=== PATIENT | female | born 1940 | race Caucasian/White ===

== ENCOUNTER 2019-12-01 18:29 | Observation (INO) | payer MEDICARE ==
[~2019-12-01] VITALS: Ht 172.7 cm; Wt 66.8 kg
[2019-12-01 19:00] LABS: BASOPHILS % 0.5 % (0.0-1.0); EOSINOPHILS # (AUTO) 0.2 (0.0-0.4); EOSINOPHILS % 2.7 % (0.0-6.0); HEMATOCRIT 35.7 % (34.2-44.1); HEMOGLOBIN 12.1 g/dL (12.0-16.0); LYMPHOCYTES # (AUTO) 1.6 (1.0-3.2); LYMPHOCYTES % 20.4 % (18.0-39.1); MEAN CORPUSCULAR HEMOGLOBIN 31.2 pg (28-32); MEAN CORPUSCULAR HGB CONC 33.9 g/dL (31-35); MONOCYTES # (AUTO) 0.8 (0.2-0.8); MONOCYTES % 9.5 % (4.4-11.3); NEUTROPHILS # (AUTO) 5.2 (2.1-6.9); NEUTROPHILS % 66.4 % (38.7-80.0); PLATELET COUNT 214 x10e3/uL (140-360); RED BLOOD COUNT 3.88 x10e6/uL (3.6-5.1); RED CELL DISTRIBUTION WIDTH 11.9 % (11.7-14.4)
[2019-12-01 19:09] LABS: INR 0.96; PARTIAL THROMBOPLASTIN TIME 26.2 seconds (23.8-35.5); PROTHROMBIN TIME 13.4 seconds (11.9-14.5)
[2019-12-01 19:19] LABS: ALANINE AMINOTRANSFERASE 10 IU/L (0-55); ALBUMIN 3.6 g/dL (3.5-5.0); ALBUMIN/GLOBULIN RATIO 1.3 (0.8-2.0); ALKALINE PHOSPHATASE 98 IU/L (40-150); ANION GAP 9.5 mmol/L (8-16); BLOOD UREA NITROGEN 6 mg/dL (7-26); BUN/CREATININE RATIO 8 (6-25); CALCIUM 8.8 mg/dL (8.4-10.2); CARBON DIOXIDE 28 mmol/L (22-29); CHLORIDE 105 mmol/L (98-107); CREATINE KINASE 26 IU/L (29-168); CREATININE, SERUM 0.75 mg/dL (0.57-1.11); EST GLOMERULAR FILTRATION RATE > 60 ML/MIN (60-); GLUCOSE 134 mg/dL (74-118); POTASSIUM 3.5 mmol/L (3.5-5.1); SODIUM 139 mmol/L (136-145)
--- NOTE | 2019-12-01 19:49 | Diagnostic Imaging Report ---
EXAMINATION: CHEST SINGLE (PORTABLE) COMPARISON: None INDICATION: Dizziness ^ERMD ORDER ^[id number] ^1905 ^Y DISCUSSION: Frontal view of the chest obtained at 1915 hours. HEART AND MEDIASTINUM: The cardiomediastinal silhouette is unremarkable. There is elevation of the right hilum. LINES: None. LUNGS: Right apical pleural thickening and a potential cavitation in the right upper lobe. The left lung is clear. PLEURA: No pleural effusion or pneumothorax. BONES AND SOFT TISSUES: Degenerative changes of the right shoulder. No focal osseous lesions. The soft tissues are normal. IMPRESSION: Suspected cavitary mass in the right upper lobe. This may be the result of tuberculosis infection or neoplasm. Signed by: Dr. Florencia Payne MD on 12/01/2019 7:46 PM
--- NOTE | 2019-12-01 19:55 | NUR ---
PT MOVED TO ER ROOM 1 BASED ON CXR REPORT OF SUSPICION OF TB. CARE TRAINER SPOKE TO PATIENT REGARDING XRAY FINDINGS. 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
[2019-12-01] MEDS ORDERED: SODIUM CHLORIDE 0.9% 1000ML 1,000 ML IV SCH (20:24)
[2019-12-01] MEDS ORDERED: ONDANSETRON HCL INJ 2MG/ML 2ML 2 MG/ML VIAL IV PRN (20:30)
--- NOTE | 2019-12-01 21:30 | NUR ---
VERIFIED THAT PT DOES NOT REQUIRE ISOLATION FOR MAC. SANITATION SUPERINTENDENT INFORMED.
[2019-12-01 22:17] LABS: BILIRUBIN,URINE NEGATIVE (NEGATIVE); CLARITY,URINE SL CLOUDY (CLEAR); COLOR,URINE YELLOW (YELLOW); KETONES,URINE NEGATIVE (NEGATIVE); LEUKOCYTE ESTERASE ,URINE NEGATIVE (NEGATIVE); NITRITE,URINE NEGATIVE (NEGATIVE); PROTEIN,URINE DIPSTICK NEGATIVE (NEGATIVE); URINE UROBILINOGEN 0.2 mg/dL (0.2 - 1)
[2019-12-01] MEDS ORDERED: ALIGN4 MG PO (22:17)
[2019-12-01] MEDS ORDERED: LEVOTHYROXINE100 MC1 IV (22:17)
[2019-12-01] MEDS ORDERED: AZITHROMYCIN250 MG PO (22:17)
[2019-12-01] MEDS ORDERED: FLOVENT DISKUS50 MCG (22:17)
[2019-12-01] MEDS ORDERED: ZYRTEC-D TABLE1 EACH PO (22:17)
[2019-12-01] MEDS ORDERED: RIFAMPIN300 MG PO (22:17)
[2019-12-01] MEDS ORDERED: ETHAMBUTOL HCL400 MG PO (22:17)
[2019-12-01] MEDS ORDERED: CALCIUM CITRAT1 EA13 PO (22:17)
[2019-12-01 22:29] LABS: EPITHELIAL CELLS,URINE FEW /LPF; WBC,URINE (MAN) 0-5 /HPF (0-5)
--- NOTE | 2019-12-01 22:40 | NUR ---
PATIENT ARRIVED TO THE FLOOR VIA Lateral SV AWAKE ALERT, DENIES CP NO DISTRESS NOTED, ORIENTED TO STAFF, CALL LIGHT AND VISITING HOURS, ABLE TO STAND W/O DIFFICULTY FOR AMBULATION BRP STANDBY ASSISTANCE GIVEN FOR SAFETY, NO DIFFICULTY URINATING, STATES LBM TODAY IN AM, CALL LIGHT WITHIN AREA, AND BED IN LOWEST POSITION
[2019-12-01 23:00] VITALS: BP 127/72
[2019-12-01 23:04] VITALS: BP 127/72
--- OUTSIDE RECORDS SUMMARY | 2019-12-02 00:16 | XMS REPORT ---
Author Author [facility] Address Unknown Phone Unavailable Care Team Providers Care Parts Cleaner Name Role Phone JEWELL MICHAEL Unavailable Unavailable JANES NÚÑEZ Unavailable Unavailable WILFRED LOGAN Unavailable Unavailable Problems This patient has no known problems. Allergies, Adverse Reactions, Alerts This patient has no known allergies or adverse reactions. Medications This patient has no known medications. Results Test Description Test Time Test Comments Text Results Atomic Results Result Comments CHEST SINGLE (PORTABLE) 2019-12-01 19:38:[address] [address] Patient Name: RENAY MABRY MR #: [id number] : 1940 Age/Sex: 79/F Req #: [id number] Adm Physician: Ordered by: ERUM ROLLINS [employer] MECH[employer]IC Report #: [id number] Location: ER Room/Bed: Procedure: [id number] DX/CHEST SINGLE (PORTABLE) Exam Date: 12/01/19 Exam Time: 1904 REPORT STATUS: Signed EXAMINATION: CHEST SINGLE (PORTABLE) ALESSIA RISON: None INDICATION: Dizziness ERMD ORDER [id number] 1904 Y DISCUSSION: Frontal view of the chest obtained at 1915 hours. HEART AND MEDIASTINUM: The cardiomediastinal silhouette is unremarkable. There is elevation of the right hilum. LINES: None. LUNGS: Right apical pleural thickening and a potential cavitation in the right upper lobe. The left lung is clear. PLEURA: No pleural effusion or pneumothorax. BONES AND SOFT TISSUES: Degenerative changes of the right shoulder. No focal osseous lesions. The soft tissues are normal. IMPRESSION: Suspected cavitary mass in the right upper lobe. This may be the result of tuberculosis infection or neoplasm. Signed by: Dr. Elizabeth Payne MD on 12/01/2019 7:46 PM Dictated By: ELIZABETH PAYNE MD 45 Transcribed By: KEVIN on 12/01/191945 COPY TO: ERUM ROLLINS NP AFB CULTURE + SMEAR 2018-10-27 12:45:00 CULTURE (BEAKER) (test nzei=0481) No acid-fast bacilli isolated in 42 days AFB SMEAR (BEAKER) (test hmjr=139) No acid fast bacilli seen AFB CULTURE + [id number] 09:30:00* Test Item Value Reference Range Comments CULTURE (BEAKER) (test cuue=9889) MYCOBACTERIUM INTRACELLULARE Mycobacterium intracellulareIdentification performed by:[facility], Dept. of Microbiology Research, [facility], [address] [place] [address] Clarithromycin (test code=42) mcg/mL AFB SMEAR (BEAKER) (test dadf=251) No acid fast bacilli seen By partial 16S rRNA gene sequencing, this isolate matches the M. intracellulare type strain 100%.FUNGUS CULTURE + [id number] 15:25:00* Test Item Value Reference Range Comments CULTURE (BEAKER) (test gyqy=5189) No fungus isolated in 28 days FUNGUS SMEAR (BEAKER) (test dcns=2617) No fungi seen FUNGUS CULTURE + [id number] 15:25:00* Test Item Value Reference Range Comments CULTURE (BEAKER) (test qcrf=2444) No fungus isolated in 28 days FUNGUS SMEAR (BEAKER) (test oxzp=6778) No fungi seen BRONCHIAL CULTURE + GRAM [id number] 17:55:00* Test Item Value Reference Range Comments CULTURE (BEAKER) (test hbvu=4395) 1+ Normal respiratory fidel present GRAM STAIN RESULT (BEAKER) (test agpf=4109) No WBCs GRAM STAIN RESULT (BEAKER) (test kqds=26503) No organisms seen BRONCHIAL CULTURE + GRAM [id number] 17:55:00* Test Item Value Reference Range Comments CULTURE (BEAKER) (test infm=8498) No growth GRAM STAIN RESULT (BEAKER) (test eozx=8285) No WBCs GRAM STAIN RESULT (BEAKER) (test jzcs=25811) No organisms seen SPIN/CONCENTRATION [id number] 15:21:00* Test Item Value Reference Range Comments CONCENTRATION CHARGED (BEAKER) (test symk=0092) Done SPIN/CONCENTRATION [id number] 15:21:00* Test Item Value Reference Range Comments CONCENTRATION CHARGED (BEAKER) (test zlaq=9405) Done TISSUE [id number] 15:38:00Surgical Pathology Report Case: [id number] Authorizing Provider: Janes Núñez MD Collected: 09/07/2018 1108 Ordering Location: [facility] Received: 09/07/2018 1323 Pathologist: Aida Mijares MD Specimen: Lung, Right Upper Lobe, Endobronchial Bx for Regular Pathology LUNG, RIGHT UPPER LOBE, ENDOBRONCHIAL BIOPSY- NO MALIGNANCY SEEN- CHRONIC INFLAMMATION, MILD- NO GRANULOMA IDENTIFIED- NO ACID FAST BACILLI OR FUNGAL ORGANISMS SEEN ON SPECIAL STAINS (SEE COMMENT) Signing Pathologist Direct Phone Line: [phone] signed by Aida Mijares MD on 09/09/2018 at 3:38 PMCorrelation with microbiology cultures is recommended.94270, 74039 x 2, 79185, 09121Mzmecayjt mycobacteria, bronchiectasis without complication Right upper lobe endobronchial biopsy The specimen is received in a formalin-filled container labeled with the patient's information and labeled "right upper lobe endobronchial biopsy" and consists of multiple fragments of martini-red soft tissue ranging from less than 0.1 to 0.1 cm, submitted entirely in A1. CG/ew Performed.The interpretation of this case included the use of immunohistochem istry or special stains. Immunohistochemistry technical testing was performed at [facility], Pathology Laboratory where it was developed a nd its performance characteristics were determined. It has not been cleared or a pproved by the U.S. Food and Drug Administration. The FDA has determined that moses ch clearance or approval is not necessary. The test is used for clinical purpose s. It should not be regarded as investigational or for research. This laboratory is certified under the Clinical Laboratory Improvement Amendments of 1988 (CLIA- 88) as qualified to perform high complexity clinical laboratory testing.GMS-neg ativeAFB-negativeAE1/AE3- highlights bronchial doloptjxgkVR39-sswugdlvqb crushed lymphoid aggregates and other lymphocytes controls adequateFLOW CYTOMETRY [id number] 11:15:00* Test Item Value Reference Range Comments FLOW CYTOMETRY RESULT POINTER (JACK) (test xcvw=9132) See Separate Report FLOW CYTOMETRY AP CASE # (JACK) (test cmoq=4796) [id number] FLOW [id number] 16:47:00Flow Cytometry Report Case: [id number] Authorizing Provider: Janes Núñez MD Collected: 09/07/2018 1122 Ordering Location: [facility] Received: 09/07/2018 1432 Pathologist: Anupama Simon MD Specimen: Other BRONCHOALVEOLAR LAVAGE FLOW CYTOMETRY: -T CELLS SHOW A CD4:CD8 RATIO OF 5.3 See tissue examination ([id number]) for further evaluation.96456Cxffeaodelxwa infection .Lung, middle lobe, dyyiiYJ42, CD3, CD4, VR9Sdtevsqsy: 90%Bright CD45+ lymphocytes comprise 51.8% of total cells, and include 95.5% of CD3+ T cells. T cells are comprised of 82.0% CD4+CD8- and 15.4% CD4-CD8+ subsets.These tests were developed and their performance characteristics determined by [facility]. They have not been cleared or approved by the U.S. Food and Drug Administration. The FDA has determined that such clearance or approval is not necessary. It should not be regarded as investigational or for research. This laboratory is certified under the Clinical Laboratory Improvement Amendments of 1988 ("CLIA") as qualified to perform high-complexity clinical testing.[facility], Department of Pathology, [address] [place] [address], [facility], Department of [facility], [address] [place] [address], [id number] 16:22:00 Medical Cytology Report Case: [id number] Authorizing Provider: Janes Núñez MD Collected: 09/07/2018 1122 Ordering Location: [facility] Received: 09/07/2018 1347 Pathologist: Farzana Tapia MD Specimen: Lung, Right Middle Lobe RIGHT MIDDLE LOBE LUNG BAL (CYTOSPINS): - NEGATIVE FOR MALIGNANCY Signing Pathologist Direct Phone Line: [phone] signed by Farzana Tapia MD on 09/07/2018 at 4:22 [id number] mycobacteria, bronchiect asisRIGHT MIDDLE LOBE LUNG BAL25 mls in cytorich red; 4 cytospinsCollected: 1218 18Received: [id number] [facility], Department of Pa thology, [address] [place] [address], [facility], Department of [facility], [address] [place] [address], [facility], Department of Pathology, [address] [place] [address], CRITSOTS REQUEST 2018-09-07 15:00:00* Test Item Value Reference Range Comments CYTOLOGY RESULT POINTER (BEAKER) (test vsvg=9049) See Separate Report BODY FLUID CELL COUNT WITH [id number] 14:40:00* Test Item Value Reference Range Comments APPEARANCE FLUID (BEAKER) (test lvbf=697) Clear Clear COLOR FLUID (BEAKER) (test etxw=982) Ritchie Colorless, Straw RBC FLUID (BEAKER) (test mqrz=122) 2905 /cu mm <=1 ADJUSTED WBC FLUID (BEAKER) (test pdzb=3688) 54 /cu mm <=5 LINING CELLS (BEAKER) (test gcvc=8822) 6 /cu mm <=1 NEUTROPHILS FLUID (BEAKER) (test fudl=6050) 35 % LYMPHS FLUID (BEAKER) (test fukz=301) 41 % MONO/MACROPHAGE FLUID (BEAKER) (test gpjo=354) 24 % EOSINOPHILS FLUID (BEAKER) (test ulzp=496) 0 % BASO FLUID (BEAKER) (test cyzf=790) 0 % CONTAINER BODY FLUID (BEAKER) (test jqzo=7369) EDTA Tube FUNGUS CULTURE + [id number] 14:59:00* Test Item Value Reference Range Comments CULTURE (BEAKER) (test bzix=8562) 1 out of 3 media Penicillium species FUNGUS SMEAR (BEAKER) (test apja=4759) No fungi seen FUNGUS CULTURE + [id number] 15:05:00* Test Item Value Reference Range Comments CULTURE (BEAKER) (test cjdu=8931) No fungus isolated in 28 days FUNGUS SMEAR (BEAKER) (test evpg=8205) No fungi seen AFB CULTURE + [id number] 11:20:00* Test Item Value Reference Range Comments CULTURE (BEAKER) (test nxah=0544) Same organism has been isolated from cultures(s) of the same body site and collection date. Repeat identification and susceptibility testing performed only after consultation with the clinical microbiology laboratory.Refer to previous culture ofMycobacterium intracellulare AFB SMEAR (BEAKER) (test ugva=978) 1+ acid fast bacilli seen AFB CULTURE + [id number] 11:19:00* Test Item Value Reference Range Comments CULTURE (BEAKER) (test svty=4304) MYCOBACTERIUM INTRACELLULARE Mycobacterium intracellulareIdentification performed by:[facility], Dept. of Microbiology Research, [facility], [address] [place] [address] Clarithromycin (test code=42) mcg/mL AFB SMEAR (BEAKER) (test gjtx=559) 3+ acid fast bacilli seen By partial 16S rRNA gene sequencing, this isolate matches M. intracellulare typ e strain 100%.[id number] 13:14:00Medical Cytology Report Case: [id number] Authorizing Provider: Wilfred Logan MD Collected: 01/08/2018 0950 Ordering Location: [facility] Received: 01/08/2018 1359 Pathologist: Nitza Hooper MD Specimen: Lung, Right Upper Lobe, routine cyto in CRR RIGHT UPPER LOBE LUNG, BAL (CYTOSPINS) : - NEGATIVE FOR MALIGNANCY - MARKED ACUTE INFLAMMATION WITH METAPLASTIC AND REACTIVE CHANGES Signing Pathologist Direct Phone Line: [phone] signed by Nitza Hooper MD on 01/14/2018 at 1:14 PMThe features herein include acute inflammation, squamous metaplasia, consistent with associated bronchiectasis, and/or an associated abscess. The features are similar to those noted in the surgical pathology report.Please also see surgical pathology report [id number] and cytopathology report [id number]. 24540Dpbvkwuo lesions of lung; bronchiectasis without complicat ionRIGHT UPPER LOBE LUNG BALPrepared 4 cytospins from sample in 35 ml cytorich r ed fixativeCollected: [id number]: [id number] cytospin slides show marked acut e inflammation, possibly quality control representative of an abscess, prominent mucin, and squa mous metaplasia. Respiratory epithelial cells show reactive changes, focally mar ked. Definitive features of malignancy or features suggestive of malignancy, are not noted in these slides.[facility], Departm ent of Pathology, [address] [place] [address], [facility]cn[facility], Department of Pathology, [address] [place] [address], [facility]mnK[facility], Department of Pat hology, [address] [place] [address], QLEQMMSB 2018-01-14 13:14:00Medical Cytology Report Case: [id number] Authorizing Provider: Wilfred Logan MD Collected: 01/08/2018 0916 Ordering Location: [facility] Received: 01/08/2018 1350 Pathologist: Nitza Hooper MD Specimen: Lung, Right Upper Lobe, Super D brushing x 3 in CRR RIGHT UPPER LOBE LUNG, BRONCHIAL BRUSHING (CYTOSPINS AND CELL BLOCK): - NEGATIVE FOR MALIGNANCY - MARKED ACUTE INFLAMMATION - ATYPICAL FEATURES INCLUDING ATYPICAL SQUAMOUS METAPLASIA, CONSISTENT WITH REACTIVE CHANGES, SECONDARY TO MARKED ACUTE INFLAMMATION Signing Pathologist Direct Phone Line: [phone] signed by Nitza Hooper MD on 01/14/2018 at 1:14 PMPlease also see surgical pathology report [id number] and cytopathology report [id number]. 800[address], 04853Fuhuygps lesion of right upper lobe of lung; bronchiectasis.RIGHT UPPER LOBE LUNG BRONCHIAL BRUSHINGSPrepared cell block(A2) and 2 cytospins from 3 brush tips in cytorich red fixativeCollected: [id number]: [id number] [facility], Department of Pathology, [address] [place] [address], [facility]clK[facility], Department of Pathology, [address] [place] [address], [place] [address], Department of Pathology, [address] [place] [address], NEHZUDHWIACSY TB,[id number] 11:23:00* Test Item Value Reference Range Comments MYCOBACTERIUM TB (test rlvf=[id number]) BRONCHIAL CULTURE + GRAM [id number] 14:47:00* Test Item Value Reference Range Comments CULTURE (BEAKER) (test ojth=9799) <1+ Normal respiratory fidel present GRAM STAIN RESULT (BEAKER) (test qdbj=2301) 4+ WBCs GRAM STAIN RESULT (BEAKER) (test boil=41656) No organisms seen TISSUE [id number] 14:18:00Surgical Pathology Report Case: [id number] Authorizing Provider: Wilfred Logan MD Collected: 01/08/2018 0933 Ordering Location: [facility] Received: 01/08/2018 1503 Pathologist: Scooetr Guaman MD Specimen: Lung, Right Upper Lobe, TRANSBRONCHIAL BX- SUPER DIMENSION, FOR REGULAR PATHOLOGY A. LUNG, RIGHT UPPER LOBE, TRANSBRONCHIAL BIOPSY: - FIBRINOPURULENT EXUDATE CONSISTENT WITH ABSCESS - NO DEFINITE MALIGNANCY IS SEEN Signing Pathologist Direct Phone Line: [phone] signed by Scooter Guaman MD on 01/11/2018 at 2:18 PMSpecial stain for GMS and AFB are negative for fungal and acid-fast micro-organisms respectively. Correlation with cultures and serology is recommended.[id number] lesion of lung, bronchiectasis without complications Right upper lobe transbronchial biopsy The specimen is received in a formalin-filled container labeled with the patient's information and labeled "right upper lobe transbronchial biopsy" and consists of multiple fragments of martini-red soft tissue ranging from 0.1 to 0.4 cm, entirely submitted in A1. CG/ew Sections show multiple fragments of fibrinopurulent exudate and blood clot. Few detached cell clusters are seen including mildly atypical squamo us epithelial cells. Findings are favored to be reactive changes. No definite m alignancy is identified.Immunostain for TTF1 and p40 highlight reactive pneumocy dallin and reactive squamous cells respectively.BRONCHIAL CULTURE + GRAM STAIN 2018-01-11 12:51:00* Test Item Value Reference Range Comments CULTURE (BEAKER) (test mfdx=4779) <1+ Normal respiratory fidel present GRAM STAIN RESULT (BEAKER) (test bdmp=7131) <1+ WBCs GRAM STAIN RESULT (BEAKER) (test hzdw=06520) No organisms seen SPIN/CONCENTRATION [id number] 07:40:00* Test Item Value Reference Range Comments CONCENTRATION CHARGED (BEAKER) (test avtb=8344) Done CYTOLOGY [id number] 15:00:00* Test Item Value Reference Range Comments CYTOLOGY RESULT POINTER (BEAKER) (test jdku=9377) See Separate Report CYTOLOGY [id number] 15:00:00* Test Item Value Reference Range Comments CYTOLOGY RESULT POINTER (BEAKER) (test urya=7568) See Separate Report FL, INFORMATION MANAGEMENT OFFICER IN OR/30 MINUTE [id number] 12:07:00Reason for exam:->lung biopsyFINAL REPORT INDICATION: Lung biopsy COMPARISON: None available. IMPRESSION: 2 fluoroscopic images obtained during a surgical procedure performed by another physician (NOT the undersigned radiologist) were provided for postprocedural interpretation. Intraoperative consultation with the radiologist was not requested. A bronchoscope is in place. The images are otherwise nondiagnostic. Fluoroscopy was not performed by the undersigned radiologist. Provided fluoroscopy time: 1.26 minutes, 2 images Signed: Aditya Casper MDReport Verified Date/Time: 01/08/2018 12:07:34 Reading Location: [facility] Radiology Reading Room , CHEST, 1 VIEW, NON DEPT 2018-01-08 10:13:00IN ENDOReason for exam:->R/O PNEUMOTHORAXShould this be performed at the bedside?->YesFINAL REPORT Chest one view INDICATION: Pneumothorax COMPARISON: None available IMPRESSION: No pneumothorax is evident post lung biopsy. Upper right lung consolidation or post obstructive pneumonitis is present. Small internal lucency may reflect focal aerated lung or cavitation. Underlying neoplasm is of concern. Advise CT if not recently obtained elsewhere. Left basilar opacity may reflect atelectasis. Pneumonitis should be excluded clinically. There is mild pulmonary vascular congestion. Cardiomediastinal silhouette prominence is magnified by technique. The bones appear intact. Signed: Aditya Casper [facility] Verified Date/Time: 01/08/2018 10:13:34 Reading Location: [facility] Radiology Reading Room
[2019-12-02 01:57] LABS: CREATINE KINASE 30 IU/L (29-168)
[2019-12-02 04:52] VITALS: BP 136/71
[2019-12-02 05:35] VITALS: BP 136/71
[2019-12-02 07:55] VITALS: BP 126/69
[2019-12-02 08:20] VITALS: BP 126/69
[2019-12-02 10:29] LABS: CREATINE KINASE 30 IU/L (29-168)
[2019-12-02 11:28] VITALS: BP 116/62
[2019-12-02] MEDS ORDERED: AZITHROMYCIN 250 MG TAB PO SCH (15:00)
[2019-12-02 15:40] VITALS: BP 131/66
[2019-12-02] MEDS ORDERED: ETHAMBUTOL HCL 400 MG TAB PO SCH (17:00)
[2019-12-02] MEDS ORDERED: RIFAMPIN 300 MG CAP PO SCH (17:00)
[2019-12-02] MEDS ORDERED: MECLIZINE HCL12.5 MG PO (17:44)
--- NOTE | 2019-12-02 18:43 | NUR ---
Patient discharged home, prescription given , IV canula removed with tip intact, no ss of infiltration, patient not in any distress, transported via to [facility]
[2019-12-03] MEDS ORDERED: FLUTICASONE PROPIONATE NASAL SPRAY NS SCH (09:00)
[2019-12-03] MEDS ORDERED: NON-FORMULARY MEDICATION (Cetirizine Hcl/Pseudoephedrine (Zyrtec-D Tablet) 1 TAB) PO SCH (09:00)
[2019-12-03] MEDS ORDERED: LORATADINE/PSEUDOEPHEDRINE 24 HR SR TAB PO SCH (09:00)
[2019-12-03] MEDS ORDERED: LEVOTHYROXINE SODIUM 100 MCG/VIAL IV SCH (09:00)
[2019-12-03] MEDS ORDERED: FLUTICASONE PROPIONATE SCH (09:00)
== END 2019-12-02 18:53 | disposition home or self-care (01) ==
LOC: ER 18:50 → MED/SURG2 12-02 00:13
PROVIDERS: ADMIT Internal Medicine; ATTEND Internal Medicine
DX: H81.10 Benign paroxysmal vertigo, unspecified ear (principal); R55 Syncope and collapse; R53.1 Weakness; E03.9 Hypothyroidism, unspecified; Z83.3 Family history of diabetes mellitus; Z82.49 Family history of ischemic heart disease and other diseases of the circulatory system
CPT/HCPCS: 36415 ×2; 71045; 80053; 81001; 82550 ×2; 82553 ×2; 84484 ×2; 85025; 85610; 85730; 93005; 96360; 96361; 96365; 96366; 99284; G0378; J7030

== ENCOUNTER 2020-11-30 14:50 | Emergency (ER) | payer MEDICARE ==
[~2020-11-30] VITALS: Ht 170.2 cm; Wt 61.9 kg
[~2020-11-30 14:50] MED LIST: ALIGN4 MG PO; AZITHROMYCIN250 MG PO; CALCIUM CITRAT1 EA13 PO; ETHAMBUTOL HCL400 MG PO; FLOVENT DISKUS50 MCG; LEVOTHYROXINE100 MC1 IV; MECLIZINE HCL12.5 MG PO; RIFAMPIN300 MG PO; ZYRTEC-D TABLE1 EACH PO
[2020-11-30] MEDS ORDERED: LEVOFLOXACIN500 MG PO (18:52)
[2020-11-30] MEDS ORDERED: CEFDINIR300 MG PO (18:54)
== END 2020-11-30 19:01 | disposition home or self-care (01) ==
LOC: FSED 14:59
DX: R04.2 Hemoptysis (principal); A31.0 Pulmonary mycobacterial infection; E03.9 Hypothyroidism, unspecified; Z20.822 Contact with and (suspected) exposure to COVID-19; N63.10 Unspecified lump in the right breast, unspecified quadrant; Z85.828 Personal history of other malignant neoplasm of skin
CPT/HCPCS: 71260; 80053; 81003; 81025; 85025; 99284; U0002